=== PATIENT | male | born 1985 | race African-American/Black ===

== ENCOUNTER 2018-09-23 01:44 | Emergency (ER) | payer OTHER ==
[2018-09-23] MEDS ORDERED: ASPIRIN CHEW 81 MG TABLET PO STA (01:49)
[2018-09-23] MEDS ORDERED: METOPROLOL TARTRATE 50 MG TABLET PO STA (02:03)
[2018-09-23 02:06] LABS: BASOPHILS # (AUTO) 0.1 10^3/uL (0.0-0.1); BASOPHILS % (AUTO) 0.8 %; EOSINOPHILS # (AUTO) 0.3 10^3/uL (0.0-0.7); EOSINOPHILS % (AUTO) 3.4 %; HGB - HEMOGLOBIN 15.2 g/dL (14.0-18.0); LYMPHOCYTES # (AUTO) 3.3 10^3/uL (1.5-3.5); LYMPHOCYTES % (AUTO) 42.5 %; MEAN CORPUSCULAR HEMOGLOBIN 29.2 pg (27.0-31.0); MEAN CORPUSCULAR HGB CONC 33.2 g/dL (32.0-36.0); MEAN PLATELET VOLUME 9.4 fL (7.4-11.4); MONOCYTES # (AUTO) 0.8 10^3/uL (0.0-1.0); MONOCYTES % (AUTO) 10.5 %; NEUTROPHILS # (AUTO) 3.3 10^3/uL (1.5-6.6); NEUTROPHILS % (AUTO) 42.8 %; PLT - PLATELET COUNT 198 10^3/uL (130-450); RED BLOOD COUNT 5.21 10^6/uL (4.70-6.10); RED CELL DISTRIBUTION WIDTH 12.6 % (12.0-15.0); WHITE BLOOD COUNT 7.7 x10^3/uL (4.8-10.8)
[2018-09-23 02:13] LABS: CALCIUM 10.1 mg/dL (8.5-10.3); CREATININE 1.4 mg/dL (0.6-1.2)
--- NOTE | 2018-09-23 03:47 | ED Physician Documentation ---
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 He had resolved that he would have 1 of the respiratory therapist do an EKG on him and so they did one tonight and he brought it down for me to evaluate because there are some abnormalities. He is not currently having any pain. He has no history of cardiac disease and does have high blood pressure for which she takes lisinopril and hydrochlorothiazide. No family history of NM. Review of Systems Cardiac: reports: Chest pain / pressure Respiratory: denies: Dyspnea GI: denies: Nausea, Vomiting PD PAST MEDICAL HISTORY - Past Medical History Past Medical History: Yes Cardiovascular: Hypertension - Past Surgical History Past Surgical History: No - Present Medications Home Medications: Ambulatory Orders Medication Instructions Recorded Confirmed Carvedilol Phosphate [Carvedilol 20 mg PO DAILY #30 cpmp.24hr 09/23/18 ER] Lisinopril 10 mg PO DAILY 09/23/18 09/23/18 hydroCHLOROthiazide 25 mg PO DAILY 09/23/18 09/23/18 [Hydrochlorothiazide] - Allergies Allergies/Adverse Reactions: Allergies Allergy/AdvReac Type Severity Reaction Status Date / Time No Known Drug Allergies Allergy Verified 09/23/18 01:50 - Social History Does the pt smoke?: No Smoking Status: Never smoker Does the pt drink ETOH?: Yes Does the pt have substance abuse?: No - Immunizations Immunizations are current?: Yes - POLST Patient has POLST: No PD ED PE NORMAL - Vitals Vital signs reviewed: Yes - General General: Alert and oriented X 3, No acute distress, Well developed/nourished - HEENT HEENT: Atraumatic - Cardiac Cardiac: RRR, No murmur - Respiratory Respiratory: No respiratory distress, Clear bilaterally - Extremities Extremities: No edema - Neuro Neuro: Alert and oriented X 3, Normal speech, Other (No gross neurological deficits.) - Psych Psych: Normal mood, Normal affect Results - Vitals Vitals: Vital Signs - 24 hr 09/23/18 09/23/18 09/23/18 01:47 01:52 03:58 Temperature 36.6 C 36.4 C L Heart Rate 106 H 58 L Respiratory 17 16 Rate Blood Pressure 163/93 H 136/84 H Blood Pressure 163/93 H [Left] O2 Saturation 100 99 09/23/18 05:47 Temperature Heart Rate 70 Respiratory 14 Rate Blood Pressure 121/75 Blood Pressure [Left] O2 Saturation 100 Oxygen O2 Source Room air - EKG (time done) 0126 Rate: Rate (enter#) Rhythm: NSR Intervals: Normal MI Ischemia: Other (There is ST elevation in leads V2 through the 4 greater than 1 mm in V2 and V3. There is a Q wave in lead V1 and T wave inversion in leads III, V5 and V6.) Compare to prior EKG: Old EKG unavailable 0501 Rate: Rate (enter#) Rhythm: NSR Intervals: Normal MI Ischemia: Other (There is ST elevation in leads V1 through V3. It does not appear substantially different than the EKG done at 130 this morning.The T wave flattening persists in lead III and the T wave inversion leads V3 through V6.) - Labs Labs: Laboratory Tests 09/23/18 09/23/18 09/23/18 01:55 01:55 01:55 WBC 7.7 RBC 5.21 Hgb 15.2 Hct 45.9 MCV 88.0 MCH 29.2 MCHC 33.2 RDW 12.6 Plt Count 198 MPV 9.4 Neut # (Auto) 3.3 Lymph # (Auto) 3.3 Taliaferro # (Auto) 0.8 Eos # (Auto) 0.3 Baso # (Auto) 0.1 Absolute Nucleated RBC 0.00 Nucleated RBC % 0.1 Sodium 139 Potassium 3.7 Chloride 98 L Carbon Dioxide 28 Anion Gap 13.0 BUN 24 H Creatinine 1.4 H Estimated GFR (MDRD) 70 L Glucose 117 H Calcium 10.1 Troponin I < 0.04 09/23/18 05:28 WBC RBC Hgb Hct MCV MCH MCHC RDW Plt Count MPV Neut # (Auto) Lymph # (Auto) Taliaferro # (Auto) Eos # (Auto) Baso # (Auto) Absolute Nucleated RBC Nucleated RBC % Sodium Potassium Chloride Carbon Dioxide Anion Gap BUN Creatinine Estimated GFR (MDRD) Glucose Calcium Troponin I < 0.04 - Rads (name of study) CXR Radiology: EMP read indepedently (Neg acute), EMP read contemporaneously PD MEDICAL DECISION MAKING - ED course Complexity details: re-evaluated patient, d/w safety consultant ED course: The patient was on duty as the hospitalist ralf. He was not having any acute pain although he had an episode that lasted just a few seconds while here on duty. He was just getting the EKG to help reassure his mind. When it came out abnormal that is when he became concerned and came down to the emergency d epartment for me to look at the EKG. He does have some ST elevation but he is completely pain-free and this could be a J-point elevation. We elected to run some initial labs and his initial troponin was negative. He was hypertensive and was given 50 mg of metoprolol p.o. His repeat blood pressure had come down into the 110s. 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 Still showing the same ST elevation. We will repeat a troponin and then I would like to discuss with the geological e logger. I think ultimately the patient is going to need stress testing question is how expeditiously it needs to be done. My thoughts were discussed with the patient throughout his care. 0600: Repeat troponin was less than 0.04. Patient remains pain-free. Chest x- ray was negative. Will discuss with cardiology regarding the atypical pain and EKG changes. Patient requested cardiology referral to [facility]. 0632: Discussed with the geological e logger Dr. Charles. He will follow the patient up as an outpatient with an echocardiogram and stress echo. He did request that the patient not take any anti-inflammatories because of his elevated creatinine and to monitor his blood pressures at home and bring that log with him to the appointment. He did suggest that carvedilol could be added as blood pressure control if needed. Departure - Departure Disposition: Home, Self Care Clinical Impression: Atypical chest pain Condition: Good Instructions: ED Chest Pain Atypical Unkn Cause Follow-Up: Eulogio Charles MD [Physician No Access] - Prescriptions: Carvedilol Phosphate [Carvedilol ER] 20 mg PO DAILY #30 cpmp.24hr Comments: Monitor your blood pressures at home and if they are staying elevated above 140/80, then start the carvedilol at nighttime. Avoid nonsteroidal anti- inflammatories. Contact Dr. Charles's office at [phone] to arrange for follow-up echo, stress echo and consultation. Return if you have chest pain that lasts longer than 30 minutes and/or is associated with sweating, nausea or vomiting, shortness of breath, dizziness or other problems arise.
--- NOTE | 2018-09-23 05:50 | XRAY Report ---
Reason: chest pain Procedure Date: 09/23/2018 Accession Number: [id number] / [id number] Procedure: XR - Chest 1 View X-Ray CPT Code: 68853 FULL RESULT: EXAM: CHEST RADIOGRAPHY EXAM DATE: 09/23/2018 05:20 AM. CLINICAL HISTORY: Chest pain. COMPARISON: None. TECHNIQUE: 1 view. FINDINGS: Lungs/Pleura: No focal opacities evident. No pleural effusion. No pneumothorax. Mediastinum: Within exam limitations, the cardiomediastinal contour is normal. Other: None. IMPRESSION: Normal single view chest. RADIA
[2018-09-23 06:53] VITALS: BP 128/62
[2018-09-23 06:56] LABS: BILIRUBIN,URINE NEGATIVE (NEGATIVE); GLUCOSE, URINE (UA) NEGATIVE (NEGATIVE); KETONES,URINE (UA) NEGATIVE (NEGATIVE); LEUKOCYTE ESTERASE, URINE NEGATIVE (NEGATIVE); NITRITE,URINE NEGATIVE (NEGATIVE); OCCULT BLOOD,URINE NEGATIVE (NEGATIVE); PROTEIN,URINE NEGATIVE (NEGATIVE); UROBILINOGEN,URINE 0.2 (NORMAL) E.U./dL (NORMAL)
[2018-09-23 07:03] LABS: CREATININE,URINE 52.1 mg/dL
[2018-09-23 07:05] LABS: TOTAL PROTEIN,URINE TIMED < 6 mg/dL
[2018-09-23 07:12] LABS: CLARITY,URINE CLEAR (CLEAR)
== END 2018-09-23 06:51 | disposition home or self-care (01) ==
LOC: ED 01:44
DX: R07.89 Other chest pain (principal); R94.31 Abnormal electrocardiogram [ECG] [EKG]; I10 Essential (primary) hypertension
CPT/HCPCS: 36415; 71045; 80048; 81003; 82570; 84156; 84484; 85025; 93005; 99283; 99284; A9270; 81001; 87086

== ENCOUNTER 2018-11-15 11:57 | Outpatient (CLI) | payer OTHER ==
[2018-11-15 12:30] LABS: BUN - BLOOD UREA NITROGEN 14 mg/dL (6-20); CARBON DIOXIDE - CO2 28 mmol/L (21-32); CHLORIDE 100 mmol/L (101-111); CHOL/HDL RATIO 4.7 (<5.0); CHOLESTEROL 187 mg/dL; CREATININE 1.1 mg/dL (0.6-1.2); GFR - MDRD 92 (>89); GLUCOSE 103 mg/dL (70-100); HDL CHOLESTEROL 40 mg/dL; LDL CHOLESTEROL,CALCULATED 130 mg/dL; LDL/HDL RATIO 3.3 (<3.6); SODIUM 140 mmol/L (135-145); VLDL CHOLESTEROL 17 mg/dL
== END 2018-11-15 11:58 | disposition home or self-care (01) ==
LOC: LAB 11:57
PROVIDERS: ATTEND Internal Medicine
DX: I10 Essential (primary) hypertension (principal); E78.2 Mixed hyperlipidemia
CPT/HCPCS: 36415; 80048; 80061; 83721

== ENCOUNTER 2019-07-14 19:44 | Outpatient (CLI) | payer OTHER ==
--- NOTE | 2019-07-14 22:49 | MISCELLANEOUS PROVIDER NOTE ---
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 I personally collected swab while he was in his car using full PPE/[place] precautions.
== END 2019-07-14 19:45 | disposition home or self-care (01) ==
LOC: COV 19:44
PROVIDERS: ATTEND Family Medicine
DX: U07.1 COVID-19 (principal)
CPT/HCPCS: 81599

== ENCOUNTER 2019-09-04 08:00 | Outpatient (CLI) | payer OTHER | END 2019-09-04 23:59 | disposition home or self-care (01) | LOC: LAB 08:00 | PROVIDERS: ATTEND Emergency Medicine | DX: Z53.9 Procedure and treatment not carried out, unspecified reason (principal) ==

== ENCOUNTER 2019-09-05 08:00 | Outpatient (CLI) | payer OTHER | END 2019-09-05 23:59 | disposition home or self-care (01) | LOC: LAB 08:00 | PROVIDERS: ATTEND Internal Medicine | DX: Z03.818 Encounter for observation for suspected exposure to other biological agents ruled out (principal) | CPT/HCPCS: 81599 ==

== ENCOUNTER 2019-09-06 08:00 | Outpatient (CLI) | payer OTHER | END 2019-09-06 23:59 | disposition home or self-care (01) | LOC: LAB 08:00 | PROVIDERS: ATTEND Internal Medicine | DX: Z03.818 Encounter for observation for suspected exposure to other biological agents ruled out (principal) | CPT/HCPCS: 81599 ==

== ENCOUNTER 2020-05-21 13:10 | Outpatient (CLI) | payer OTHER ==
[2020-05-21 13:42] LABS: BUN - BLOOD UREA NITROGEN 13 mg/dL (6-20); CARBON DIOXIDE - CO2 29 mmol/L (21-32); CHLORIDE 98 mmol/L (101-111); CHOL/HDL RATIO 4.2 (<5.0); CHOLESTEROL 202 mg/dL; CREATININE 1.3 mg/dL (0.6-1.2); GLUCOSE 130 mg/dL (70-100); HDL CHOLESTEROL 48 mg/dL; LDL CHOLESTEROL,CALCULATED 128 mg/dL; LDL/HDL RATIO 2.7 (<3.6); VLDL CHOLESTEROL 26 mg/dL
== END 2020-05-21 13:11 | disposition home or self-care (01) ==
LOC: LAB 13:10
PROVIDERS: ATTEND Internal Medicine
DX: I10 Essential (primary) hypertension (principal)
CPT/HCPCS: 36415; 80048; 80061; 83721

== ENCOUNTER 2020-09-02 07:49 | Outpatient (CLI) | payer OTHER ==
--- NOTE | 2020-09-02 08:25 | XRAY Report ---
PROCEDURE: Chest 2 View X-Ray INDICATIONS: SOB TECHNIQUE: 2 view(s) of the chest. COMPARISON: None. FINDINGS: Surgical changes and devices: 04/25/2018 chest single view.. Lungs and pleura: No pleural effusions or pneumothorax. Lungs are clear. Mediastinum: Mediastinal contours are normal. Heart size is normal. Bones and chest wall: No suspicious bony abnormalities. Soft tissues appear unremarkable. IMPRESSION: Normal for age, source of current symptoms is not seen. Reviewed by: Aquilino Castano MD on 09/02/2020 8:24 AM PDT Approved by: Aquilino Castano MD on 09/02/2020 8:24 AM PDT Station ID: [id number]
== END 2020-09-02 07:50 | disposition home or self-care (01) ==
LOC: DI 07:49
PROVIDERS: ATTEND Internal Medicine
DX: A19 Miliary tuberculosis (principal); I10 Essential (primary) hypertension

== ENCOUNTER 2023-02-19 12:08 | Outpatient (CLI) | payer OTHER ==
[2023-02-19 13:50] LABS: INFLUENZA A- RESP PCR PANEL NOT DETECTED; INFLUENZA B - RESP PCR PANEL NOT DETECTED; RSV- RESP PCR PANEL NOT DETECTED; SARS-CoV-2 -RESP PCR PANEL NOT DETECTED
== END 2023-02-19 12:09 | disposition home or self-care (01) ==
LOC: LAB 12:08
PROVIDERS: ATTEND Physician Assistant
DX: J06.9 Acute upper respiratory infection, unspecified (principal); Z20.822 Contact with and (suspected) exposure to COVID-19
CPT/HCPCS: 87637